=== PATIENT | male | born 1970 | race African-American/Black ===

== ENCOUNTER 2018-09-04 21:58 | Inpatient (IN) | payer MEDICARE, OTHER ==
[~2018-09-04] VITALS: Ht 182.9 cm; Wt 127.0 kg
[2018-09-04] MEDS ORDERED: SODIUM CHLORIDE 0.9% 1,000 ML IV ONE (23:01)
[2018-09-04] MEDS ORDERED: ONDANSETRON HCL 4MG/2ML INJ IV STA (23:01)
[2018-09-04] MEDS ORDERED: PANTOPRAZOLE SODIUM 40 MG/VIAL IV STA (23:03)
[2018-09-04] MEDS ORDERED: MAGNESIUM/ALUMINUM HYDROXIDE/SIMETHICONE 30ML UDC PO STA (23:03)
[2018-09-04] MEDS ORDERED: LORAZEPAM 2MG/ML CPJ IV ONE (23:15)
[2018-09-04 23:47] LABS: HEMATOCRIT. 53.2 % (42.0-52.0); HEMOGLOBIN. 18.4 g/dL (14.0-18.0); MEAN CORPUSCULAR HEMOGLOBIN 30.2 pg (28.0-32.0); MEAN CORPUSCULAR VOLUME 87.5 fL (80.0-94.0); MEAN PLATELET VOLUME 8.4 fl (7.4-10.4); PLATELET 310 x1000/uL (130-400); RED BLOOD CELL COUNT 6.08 mill/uL (4.7-6.1); RED CELL DISTRIBUTION WIDTH 13.6 % (11.6-14.6)
[2018-09-05 00:04] LABS: CHLORIDE 108 mEq/L (98-107)
[2018-09-05 00:11] LABS: ETHANOL BLOOD < 10 mg/dL
[2018-09-05] MEDS ORDERED: SODIUM CHLORIDE 0.9% 1,000 ML IV ONE (01:26)
[2018-09-05 01:28] LABS: PLATELET ESTIMATE NORMAL
[2018-09-05] MEDS ORDERED: LORAZEPAM 2MG/ML CPJ IV ONE (01:30)
[2018-09-05] MEDS ORDERED: CLONIDINE 0.2MG TABLET PO ONE (02:15)
[2018-09-05] MEDS ORDERED: MIDAZOLAM HCL 2 MG/2 ML VIAL IV ONE (03:15)
[2018-09-05] MEDS ORDERED: ENALAPRIL 2.5MG/2ML VIAL 2ML IV ONE (03:15)
[2018-09-05 14:12] LABS: *AMPHETAMINES SCREEN URINE PRESUMTIVE POSITIVE (NEGATIVE)
[2018-09-05 14:13] LABS: *BARBITURATES SCREEN URINE NEGATIVE (NEGATIVE); *BENZODIAZEPINES SCREEN URINE NEGATIVE (NEGATIVE); *COCAINE SCREEN URINE NEGATIVE (NEGATIVE); CANNABINOID URINE SCREEN NEGATIVE (NEGATIVE); METHADONE URINE SCREEN NEGATIVE (NEGATIVE); OPIATES URINE SCREEN NEGATIVE (NEGATIVE); PHENCYCLIDINE URINE SCREEN NEGATIVE (NEGATIVE)
[2018-09-05] MEDS ORDERED: HYDRALAZINE 20MG/ML VIAL IV NR (14:30)
[2018-09-05] MEDS ORDERED: ONDANSETRON HCL 4MG/2ML INJ IV PRN (16:00)
[2018-09-05] MEDS ORDERED: IPRATROPIUM/ALBUTEROL 0.5-3(2.5)MG/3ML NEB INH PRN (16:00)
[2018-09-05 22:30] VITALS: BP 168/96
[2018-09-05 23:42] LABS: CHLORIDE 108 mEq/L (98-107)
[2018-09-05 23:49] LABS: LDL CHOLESTEROL 56 mg/dL (5-100)
[2018-09-05 23:51] LABS: HDL CHOLESTEROL 44 mg/dL (40-59)
[2018-09-05] MEDS: SODIUM CHLORIDE 0.9% 1,000 ML IV SCH (23:53)
[2018-09-06] VITALS: BP 168/95
[2018-09-06 00:02] LABS: CREATINE KINASE 1260 IU/L (39-308)
[2018-09-06] MEDS: CLONIDINE 0.1MG TABLET PO PRN ×4 (00:10→21:39)
[2018-09-06 00:41] LABS: BASOPHILS % 0.3 % (0.0-2.0); EOSINOPHILS % 0.7 % (0.0-5.0); HEMATOCRIT. 41.1 % (42.0-52.0); LYMPHOCYTES % 12.9 % (20.0-50.0); MEAN CORPUSCULAR HEMOGLOBIN 29.6 pg (28.0-32.0); MEAN CORPUSCULAR VOLUME 88.3 fL (80.0-94.0); MEAN PLATELET VOLUME 8.3 fl (7.4-10.4); MONOCYTES % 8.2 % (2.0-8.0); NEUTROPHILS % 77.9 % (40.0-76.0); PLATELET 244 x1000/uL (130-400); RED BLOOD CELL COUNT 4.65 mill/uL (4.7-6.1); RED CELL DISTRIBUTION WIDTH 13.4 % (11.6-14.6)
[2018-09-06 00:44] LABS: HEMOGLOBIN. 13.8 g/dL (14.0-18.0)
[2018-09-06 01:14] LABS: HEPATITIS B SURFACE ANTIGEN NEGATIVE
[2018-09-06 01:43] LABS: HEPATITIS A AB IGM NEGATIVE (NEGATIVE)
[2018-09-06 07:46] LABS: BASOPHILS % 0.3 % (0.0-2.0); EOSINOPHILS % 1.1 % (0.0-5.0); HEMATOCRIT. 41.3 % (42.0-52.0); HEMOGLOBIN. 13.9 g/dL (14.0-18.0); MEAN CORPUSCULAR VOLUME 88.9 fL (80.0-94.0); MEAN PLATELET VOLUME 8.5 fl (7.4-10.4); MONOCYTES % 7.2 % (2.0-8.0); NEUTROPHILS % 78.4 % (40.0-76.0); PLATELET 247 x1000/uL (130-400); RED BLOOD CELL COUNT 4.64 mill/uL (4.7-6.1); RED CELL DISTRIBUTION WIDTH 13.5 % (11.6-14.6)
[2018-09-06 08:00] VITALS: BP 172/92
[2018-09-06] MEDS: SODIUM CHLORIDE 0.9% 1,000 ML IV SCH ×2 (09:00→19:00)
[2018-09-06] MEDS: ENOXAPARIN 30MG/0.3ML SYR SUBCUT SCH ×2 (09:55→21:40)
[2018-09-06] MEDS ORDERED: AMLODIPINE 10MG TABLET PO NR (11:30)
[2018-09-06 12:00] VITALS: BP 169/101
[2018-09-06 13:17] LABS: T4 FREE 1.2 ng/dL (0.76-1.46)
[2018-09-06] MEDS: LOSARTAN POTASSIUM 50 MG TABLET PO SCH (14:30)
[2018-09-06] MEDS: CEFTRIAXONE 1 G PREMIX 50 ML IV SCH ×3 (14:32→14:39)
[2018-09-06 19:13] LABS: CLARITY URINE CLEAR (CLEAR); COLOR URINE YELLOW (YELLOW); KETONES URINE TRACE (NEGATIVE); LEUKOCYTE ESTERASE URINE NEGATIVE (NEGATIVE); NITRITE URINE NEGATIVE (NEGATIVE); OCCULT BLOOD URINE NEGATIVE (NEGATIVE); PH URINE 6.5 (4.5-8.0); PROTEIN URINE NEGATIVE (NEGATIVE); SPECIFIC GRAVITY URINE 1.021 (1.005-1.030)
[2018-09-06 20:00] VITALS: BP 156/97
[2018-09-07 00:05] VITALS: BP 143/71
[2018-09-07] MEDS: ACETAMINOPHEN 325MG TABLET PO PRN ×2 (00:09→02:11)
[2018-09-07 04:10] VITALS: BP 183/98
[2018-09-07] MEDS: CLONIDINE 0.1MG TABLET PO PRN ×2 (04:42→12:18)
[2018-09-07] MEDS: SODIUM CHLORIDE 0.9% 1,000 ML IV SCH ×2 (04:44→14:58)
[2018-09-07 07:24] LABS: CHLORIDE 105 mEq/L (98-107)
[2018-09-07 07:25] LABS: HEMOGLOBIN 14.1 g/dL (14.0-18.0); MEAN CORPUSCULAR HEMOGLOBIN 29.7 pg (28.0-32.0); MEAN CORPUSCULAR VOLUME 88.3 fL (80.0-94.0); PLATELET 233 x1000/uL (130-400); RED BLOOD CELL COUNT 4.75 mill/uL (4.7-6.1); RED CELL DISTRIBUTION WIDTH 13.5 % (11.6-14.6)
[2018-09-07] MEDS: LOSARTAN POTASSIUM 50 MG TABLET PO SCH (08:15)
[2018-09-07] MEDS: ENOXAPARIN 30MG/0.3ML SYR SUBCUT SCH (08:15)
[2018-09-07 08:17] VITALS: BP 147/88
[2018-09-07] MEDS ORDERED: AMLODIPINE 5MG TABLET PO SCH (10:45)
[2018-09-07] MEDS ORDERED: POTASSIUM CHLORIDE 20MEQ TABLET SR PO SCH (10:45)
[2018-09-07 10:55] LABS: CREATINE KINASE MB FRACTION 2.9 ng/mL (0.5-3.6)
[2018-09-07 12:29] VITALS: BP 165/100
[2018-09-07 12:34] VITALS: BP_SYST 148; BP_SYST 165; BP_DIAS 100; BP_DIAS 92
[2018-09-07 13:46] VITALS: BP 148/92
[2018-09-07] MEDS: CEFTRIAXONE 1 G PREMIX 50 ML IV SCH (14:58)
== END 2018-09-07 16:00 | disposition home or self-care (01) | DRG 812 ==
LOC: ER 21:58 → 8WST 09-05 01:59 → EDBEDREQ 09-05 02:00 → ENRESERV 09-05 19:52
PROVIDERS: ADMIT Internal Medicine; ATTEND Internal Medicine
DX: T43.621A Poisoning by amphetamines, accidental (unintentional), initial encounter (principal); G92 Toxic encephalopathy; N17.9 Acute kidney failure, unspecified; M62.82 Rhabdomyolysis; R65.10 Systemic inflammatory response syndrome (SIRS) of non-infectious origin without acute organ dysfunction; E86.0 Dehydration; D72.829 Elevated white blood cell count, unspecified; I16.0 Hypertensive urgency; E80.6 Other disorders of bilirubin metabolism; F15.10 Other stimulant abuse, uncomplicated; K80.20 Calculus of gallbladder without cholecystitis without obstruction; R74.0 Nonspecific elevation of levels of transaminase and lactic acid dehydrogenase [LDH]; I10 Essential (primary) hypertension; Z91.19 Patient's noncompliance with other medical treatment and regimen
CPT/HCPCS: 36415; 71045; 76705; 80048; 80061; 80076; 80305; 82550; 82553; 82962; 83036; 84145; 84439; 84443; 84484; 85027; 86705; 86709; 86803; 87340; 87804; 93005; 96374; 96375; 99284; 99291; C1893; C9113; G0482; J0360; J0696; J1650; J2060; J2250; J2405; J3490; J7030; J7040

== ENCOUNTER 2024-08-01 11:36 | Emergency (ER) | payer MEDICAID ==
[~2024-08-01] VITALS: Ht 182.9 cm; Wt 118.0 kg
[2024-08-01 11:40] VITALS: TEMP 97.5; O2SAT 99
[2024-08-01 14:36] VITALS: BP 191/119; PULSE 86; RESP 22
[2024-08-01] MEDS: METOPROLOL SUCCINATE 50MG ER TABLET PO ONE (14:36)
[2024-08-01] MEDS: NAPROXEN 375MG TABLET PO ONE (14:36)
[2024-08-01] MEDS: KETOROLAC 30MG/ML VIAL IM ONE (14:36)
[2024-08-01] MEDS ORDERED: INDO50CA98 MT (14:39)
[2024-08-01] MEDS ORDERED: COLC0.6C3 MT (14:39)
== END 2024-08-01 14:51 | disposition home or self-care (01) ==
LOC: ER 11:36
DX: M10.9 Gout, unspecified (principal); I10 Essential (primary) hypertension
CPT/HCPCS: 96372; 99283; J1885; Z7610